=== PATIENT | male | born 1980 | race Hispanic/Latino ===

== ENCOUNTER 2023-08-09 23:40 | Inpatient (IN) | payer SELFPAY ==
[2023-08-10] MEDS ORDERED: Ondansetron PF 4 MG/2 ML Vial IVP PRN (03:20)
[2023-08-10] MEDS ORDERED: Acetaminophen 325 MG TAB PO PRN (03:20)
[2023-08-10] MEDS ORDERED: Ondansetron ODT 4 MG TAB PO PRN (03:20)
[2023-08-10] MEDS ORDERED: Acetaminophen 650 MG Suppository PR PRN (03:20)
[2023-08-10 03:26] VITALS: BMI 23.9
[2023-08-10] MEDS ORDERED: Lorazepam 1 MG TAB PO PRN (04:27)
[2023-08-10 05:00] LABS: #Basophils Less than 0.03 10x3/uL (0.0-0.2); %Basophils 0.1 % (0.0-1.0); %Lymphocytes 7.4 % (21.0-51.0); %Monocytes 8.9 % (0.0-10.0); %Neutrophils 79.9 % (42.0-75.0); Hematocrit 38.9 % (42.0-52.0); Hemoglobin 13.4 g/dL (14.0-18.0); Mean Corpuscular HGB CONC 34.4 g/dL (32.0-36.0); Mean Corpuscular Hemoglobin 31.5 pg (27.0-31.0); Mean Corpuscular Volume 91.3 fL (78.0-98.0); Mean Platelet Volume 9.7 fL (7.4-10.4); Platelet Count 144 10x3/uL (130-400); RBC Distribution Width 12.4 % (11.5-14.5); Red Blood Cell (RBC) Count 4.26 mill/uL (4.70-6.10)
[2023-08-10 06:00] LABS: ALT (SGPT) 8 U/L (8-55); AST (SGOT) 16 U/L (5-34); Albumin 3.3 g/dL (3.5-5.0); Alkaline Phosphatase 83 U/L (40-110); Anion Gap 10 mmol/L (10-20); BUN (Urea Nitrogen) 15 mg/dL (8.9-20.6); Bilirubin, Total 1.3 mg/dL (0.2-1.2); Calc. Creatinine Clearance 108 mL/min (70-130); Calcium 8.4 mg/dL (7.8-10.44); Carbon Dioxide 25 mmol/L (22-29); Chloride 106 mmol/L (98-107); Estimated GFR 112; Globulin 2.3 g/dL (2.4-3.5); Glucose 92 mg/dL (70-105); Potassium 3.4 mmol/L (3.5-5.1); Protein, Total 5.6 g/dL (6.0-8.3); Sodium 138 mmol/L (136-145)
[2023-08-10] MEDS ORDERED: Magnevist 469MG/ML 20 ML VIAL ONE (09:31)
[2023-08-10] MEDS: Famotidine/PF 20 mg/2ml Vial SLOW IVP SCH (09:31)
[2023-08-10] MEDS: Famotidine 20 MG TAB PO SCH (09:32)
[2023-08-10] MEDS: Potassium Chloride 20 MEQ TAB PO SCH (09:33)
[2023-08-10] MEDS: GoLYTELY 4,000 ml Bottle PO SCH (18:27)
[2023-08-11 04:48] LABS: Hematocrit 43.1 % (42.0-52.0); Hemoglobin 14.9 g/dL (14.0-18.0); Mean Corpuscular HGB CONC 34.6 g/dL (32.0-36.0); Mean Corpuscular Hemoglobin 31.7 pg (27.0-31.0); Mean Corpuscular Volume 91.7 fL (78.0-98.0); Mean Platelet Volume 10.1 fL (7.4-10.4); Platelet Count 157 10x3/uL (130-400); RBC Distribution Width 12.4 % (11.5-14.5)
[2023-08-11 05:07] LABS: Anion Gap 13 mmol/L (10-20); BUN (Urea Nitrogen) 11 mg/dL (8.9-20.6); Calc. Creatinine Clearance 108 mL/min (70-130); Calcium 9.1 mg/dL (7.8-10.44); Carbon Dioxide 27 mmol/L (22-29); Chloride 102 mmol/L (98-107); Estimated GFR 112; Glucose 77 mg/dL (70-105); Potassium 4.3 mmol/L (3.5-5.1); Sodium 138 mmol/L (136-145)
[2023-08-11] MEDS ORDERED: Lidocaine 1% PF 5 ML VIAL ONE (10:54)
[2023-08-11] MEDS ORDERED: PROPOFOL 40 ML ONE (10:54)
[2023-08-11] MEDS ORDERED: PROPOFOL 20 ML ONE (11:20)
[2023-08-11 13:57] VITALS: BP 126/80; TEMP 97.5
== END 2023-08-11 16:19 | disposition home or self-care (01) | DRG 375 ==
LOC: MSONC 08-10 02:55
PROVIDERS: ADMIT Student in an Organized Health Care Education/Training Program; ATTEND Internal Medicine
PROC: 0DBP8ZZ Excision of Rectum, Via Natural or Artificial Opening Endoscopic (ICD-10-PCS; principal; 2023-08-11)
PROC: 0W3P8ZZ Control Bleeding in Gastrointestinal Tract, Via Natural or Artificial Opening Endoscopic (ICD-10-PCS; 2023-08-11)
DX: C18.7 Malignant neoplasm of sigmoid colon (principal); C78.7 Secondary malignant neoplasm of liver and intrahepatic bile duct; Z88.0 Allergy status to penicillin; E87.6 Hypokalemia; K62.1 Rectal polyp; Z79.899 Other long term (current) drug therapy
CPT/HCPCS: 36415; 74183; 80048; 80053; 82105; 82378; 85025; 85027; 88305; A9579; C1889; J2704